=== PATIENT | female | born 1955 | race Caucasian/White ===

== ENCOUNTER 2018-07-30 08:53 | Emergency (ER) | payer OTHER ==
[~2018-07-30] VITALS: Ht 170.2 cm; Wt 81.7 kg
[~2018-07-30 08:53] MED LIST: ASPIRIN EC81 M1; CRESTOR10 MG; D3 DOTS2000 UNIT; FISHOIL; IBUPROFEN 800800 M1 PO; KEFLEX500 MG PO; NORCO 5-325 TA1 EACH PO; NORVASC 2.5 MG2.5 M1; SIMVASTATIN20 MG; TIROSINT88 MCG PO; VICODIN 5-5001 EACH PO; VITAMIN D3400 UNIT PO
[2018-07-30] MEDS ORDERED: [UNRECOGNIZED DRUG - REMARK] PO (09:03)
[2018-07-30 10:49] LABS: HEMATOCRIT 39.6 % (37.0-47.0); HEMOGLOBIN 13.2 gm/dL (12.0-15.0); MCH 35.4 pg (26.0-34.0); MCHC 33.3 g/dL (28.0-37.0); MCV 106.5 fL (80.0-100.0); MPV 8.6 fl. (7.2-11.1); NUCLEATED RBCS 0 /100WBC; PLATELET COUNT* 244 thou/uL (150-400); RBC 3.72 mil/uL (4.20-5.00); WBC 8.2 thou/uL (4.0-11.0)
[2018-07-30 11:14] LABS: ALBUMIN 3.3 g/dL (3.4-5.0); ALKALINE PHOSPHATASE 102 U/L (46-116); ANION GAP 9 mmol/L (7-16); BUN 16 mg/dL (7-18); CALCIUM 8.3 mg/dL (8.5-10.1); CHLORIDE 105 mmol/L (98-107); CO2 25 mmol/L (21-32); CREATININE 0.9 mg/dL (0.6-1.3); GLUCOSE 126 mg/dL (70-99); LIPASE 126 U/L (73-393); POTASSIUM 4.2 mmol/L (3.5-5.1); SGOT 19 U/L (15-37); SGPT 31 U/L (30-65); SODIUM 139 mmol/L (136-145); TOTAL BILIRUBIN 0.5 mg/dL (<0.1-1.0); TOTAL PROTEIN 6.6 g/dL (6.4-8.2); TROPONIN-I LEVEL <0.06 ng/mL (<0.06)
[2018-07-30] MEDS ORDERED: PHENERGAN 25 MG25 M1 PO (11:28)
[2018-07-30 12:19] VITALS: BP 149/77
[2018-07-30 12:32] LABS: ABSOLUTE LYMPHOCYTES 0.8 thou/uL (0.8-5.3); ABSOLUTE NEUTROPHILS 7.4 thou/uL (1.6-8.1); ANISOCYTOSIS Occasional; MACROCYTES 1+; PLATELET ESTIMATE ADEQUATE
--- NOTE | 2018-07-31 12:12 | EKG ---
[place] [address] ELECTROCARDIOGRAM REPORT Name: MELLY DELANEY Room: [facility]#: [id number] Admission: 07/30/18 Attend Phys: Discharge: 07/30/18 Date of : 57 Report #: [id number] THIS REPORT FOR: //name// [facility] ED Test Date: 2018-07-30 Test Time: 09:07:36 Pat Name: MELLY DELANEY Department: Room: Gender: F Business Programmer: Rene BULLOCK : 1955 Requested By: Cristian Monzon Order Number: [id number] MD: Curtis Teran Measurements Intervals [place] Rate: 97 P: 30 DC: 176 QRS: -19 QRSD: 91 T: 38 QT: 407 QTc: 517 Interpretive Statements Sinus rhythm Inferior infarct, old Prolonged QT interval Compared to ECG 08/14/2014 11:25:51 Prolonged QT interval now present Electronically Signed On 07-31-2018 12:12:03 CDT by Curtis Teran [email or web address] <ELECTRONICALLY SIGNED> By: Curtis Teran MD, [facility] 07/31/18 1212 6 Curtis Teran MD, [facility] /EPI
== END 2018-07-30 12:20 | disposition home or self-care (01) ==
LOC: M.ERS 08:53
PROVIDERS: Emergency Medicine Emergency Medical Services
DX: K52.9 Noninfective gastroenteritis and colitis, unspecified (principal); I10 Essential (primary) hypertension; E03.9 Hypothyroidism, unspecified; F17.210 Nicotine dependence, cigarettes, uncomplicated; Z88.0 Allergy status to penicillin